=== PATIENT | female | born 1980 | race Caucasian/White ===

== ENCOUNTER 2024-01-12 18:55 | Emergency (ER) | payer MEDICAID ==
[~2024-01-12] VITALS: Ht 172.7 cm; Wt 91.0 kg
[2024-01-12 19:10] VITALS: BP 156/102; PULSE 110; RESP 16; TEMP 97.7; O2SAT 99
== END 2024-01-13 01:25 | disposition left against medical advice (07) ==
LOC: ER 18:55
DX: R07.89 Other chest pain (principal); Z53.21 Procedure and treatment not carried out due to patient leaving prior to being seen by health care provider
CPT/HCPCS: 93005